=== PATIENT | female | born 1955 | race Caucasian/White ===

== ENCOUNTER 2023-06-16 21:40 | Inpatient (IN) | payer MEDICARE, OTHER ==
[~2023-06-16] VITALS: Ht 162.6 cm; Wt 84.8 kg
[2023-06-16] MEDS ORDERED: ONDANSETRON 4 MG/2 ML VIAL ONE (21:57)
[2023-06-16] MEDS ORDERED: AMLODIPINE 5 MG TABLET ONE (21:57)
[2023-06-16] MEDS ORDERED: MORPHINE SULFATE 4 MG/1 ML DISP.SYRIN ONE (21:58)
[2023-06-16] MEDS: AMLODIPINE 5 MG TABLET PO ONE (22:10)
[2023-06-16] MEDS ORDERED: IOHEXOL 300MG/ML 100 ML INFUS..BTL ONE (22:17)
[2023-06-16] MEDS ORDERED: IV NORMAL SALINE 250 ML IV ONE (22:17)
[2023-06-16] MEDS ORDERED: SWABABLE VALVE TRANSFER SET EA MC ONE (22:17)
[2023-06-16] MEDS: MORPHINE SULFATE 2 MG/1 ML DISP.SYRIN IV ONE (22:20)
[2023-06-16] MEDS: ONDANSETRON 4 MG/2 ML VIAL IV ONE (22:20)
[2023-06-16] MEDS: IV NORMAL SALINE 1000 ML BAG IV ONE (22:24)
[2023-06-16 22:33] LABS: BASOPHILS # (AUTO) 0.1 K/UL (0.0-0.2); BASOPHILS % (AUTO) 2.2 % (0.0-2.0); EOSINOPHILS # (AUTO) 0.1 K/uL (0.0-0.7); EOSINOPHILS % (AUTO) 1.8 % (0.0-7.0); HEMATOCRIT 26.9 % (31.2-41.9); HEMOGLOBIN 9.1 g/dL (10.9-14.3); LYMPHOCYTES # (AUTO) 0.5 K/uL (0.8-4.8); MEAN CORPUSCULAR HEMOGLOBIN 33.1 uug (24.7-32.8); MEAN CORPUSCULAR HGB CONC 34 g/dL (32.3-35.6); MEAN CORPUSCULAR VOLUME 98.4 fL (75.5-95.3); MONOCYTES # (AUTO) 0.2 K/uL (0.1-1.30); MONOCYTES % (AUTO) 4.3 % (0.0-11.0); NEUTROPHILS # (AUTO) 4.1 K/uL (1.8-8.9); NEUTROPHILS % (AUTO) 81.7 % (38.5-71.5); PLATELET COUNT (AUTO) 280 K/uL (179-408); RED BLOOD CELL COUNT(AUTO) 2.73 MIL/uL (3.63-4.92); RED CELL DISTRIBUTION WIDTH 18.4 % (12.3-17.7)
[2023-06-16 22:44] LABS: DIFFERENTIAL COMMENT 1
[2023-06-16 22:48] LABS: CALCIUM 8.3 mg/dL (8.5-10.1); CREATININE 0.7 mg/dL (0.6-1.3); POTASSIUM 3.1 mmol/L (3.5-5.1)
[2023-06-16 22:54] LABS: ALBUMIN 2.5 g/dL (3.4-5.0); BILIRUBIN,DIRECT 0.8 mg/dL (0.0-0.2); BILIRUBIN,TOTAL 1.8 mg/dL (0.2-1.0); TOTAL PROTEIN, SERUM 5.6 g/dL (6.4-8.2)
[2023-06-17] MEDS ORDERED: POTASSIUM CHLORIDE 20 MEQ TAB.PRT.SR ONE (00:56)
[2023-06-17] MEDS ORDERED: METRONIDAZOLE 500 MG/NS 100ML 100 ML IV ONE ×2 (00:56→08:12)
[2023-06-17] MEDS: METRONIDAZOLE 500 MG/NS 100 ML PIGGYBACK IV ONE (01:00)
[2023-06-17 01:09] LABS: *BILIRUBIN,URIN NEGATIVE (NEGATIVE); *BLOOD, URINE NEGATIVE (NEGATIVE); *CLARITY,URINE CLEAR (CLEAR); *COLOR,URINE YELLOW (YELLOW); *KETONES,URINE NEGATIVE (NEGATIVE); *PROTEIN,URINE NEGATIVE (NEGATIVE); *UROBILINOGEN,URINE 0.2 E.U./dl (NORMAL); LEUKOCYTE ESTERASE ,URINE NEGATIVE (NEGATIVE); NITRITE, URINE NEGATIVE (NEGATIVE); UGLUCOSE NEGATIVE (NEGATIVE)
[2023-06-17] MEDS: POTASSIUM CHLORIDE 20 MEQ TAB.PRT.SR PO ONE (01:23)
[2023-06-17] MEDS ORDERED: CIPROFLOXACIN IV 200 ML IV ONE (01:31)
[2023-06-17] MEDS: CIPROFLOXACIN IV 400 MG in PREMIXED 1 EACH IV SCH ×2 (01:45→14:16)
[2023-06-17] MEDS ORDERED: APIX5TAB PO (02:35)
[2023-06-17] MEDS ORDERED: GLIP5TAB13 PO (02:35)
[2023-06-17] MEDS ORDERED: LOPE2CAP40 PO (02:35)
[2023-06-17] MEDS ORDERED: LORA0.5T48 PO (02:35)
[2023-06-17] MEDS ORDERED: METO-358 PO (02:35)
[2023-06-17] MEDS ORDERED: PRED2.5T PO (02:35)
[2023-06-17] MEDS ORDERED: PANT40TA2 PO (02:35)
[2023-06-17] MEDS ORDERED: GABA-532 PO (02:35)
[2023-06-17] MEDS ORDERED: OXYC-133 PO (02:35)
[2023-06-17] MEDS ORDERED: PRED10TA23 PO (02:35)
[2023-06-17] MEDS ORDERED: RAMI10CA32 PO (02:35)
[2023-06-17] MEDS ORDERED: MAGNESIUM HYDROXIDE 30 ML LIQUID UDC PO PRN (02:45)
[2023-06-17] MEDS ORDERED: ACETAMINOPHEN 325 MG TABLET PO PRN (02:45)
[2023-06-17] MEDS ORDERED: REMEDY ESSENTIAL ZINC PASTE 113 GM TP PRN (02:45)
[2023-06-17] MEDS ORDERED: IV NS 1000 ML 1,000 ML IV PRN (02:45)
[2023-06-17] MEDS ORDERED: HYDROMORPHONE 1 MG/1 ML DISP.SYRIN IV PRN (02:45)
[2023-06-17] MEDS ORDERED: PANTOPRAZOLE SODIUM 40 MG TABLET.DR PO ONE (06:19)
[2023-06-17] MEDS: PANTOPRAZOLE SODIUM 40 MG TABLET.DR PO SCH (06:25)
[2023-06-17] MEDS ORDERED: METOPROLOL SUCCINATE XL 50 MG TAB.SR.24H PO ONE (08:58)
[2023-06-17] MEDS ORDERED: predniSONE 10 MG TABLET ONE (08:59)
[2023-06-17] MEDS: METRONIDAZOLE 500 MG/NS 100ML 500 MG in PREMIXED 1 EACH IV SCH (09:10)
[2023-06-17] MEDS: predniSONE 10 MG TABLET PO SCH (09:30)
[2023-06-17] MEDS: METOPROLOL SUCCINATE XL 50 MG TAB.SR.24H PO SCH (09:30)
[2023-06-17] MEDS ORDERED: ONDANSETRON 4 MG/2 ML VIAL ONE (11:35)
[2023-06-17] MEDS: ONDANSETRON 4 MG/2 ML VIAL IV PRN (11:40)
[2023-06-17] MEDS ORDERED: HYDR-3972 PO (12:25)
[2023-06-17] MEDS ORDERED: METR500T PO (12:25)
[2023-06-17] MEDS ORDERED: ONDA4TAB5 PO (12:25)
[2023-06-17] MEDS ORDERED: CIPR500S3 PO (12:25)
[2023-06-17] MEDS ORDERED: APIXABAN 5 MG TABLET PO SCH (17:00)
[2023-06-17 17:34] VITALS: BP 135/65; O2SAT 94
[2023-06-17] MEDS ORDERED: GABAPENTIN 100 MG CAPSULE PO SCH (21:00)
[2023-06-17] MEDS ORDERED: LORAZEPAM 1 MG TABLET PO SCH ×3 (21:00→21:15)
[2023-06-17] MEDS ORDERED: LORAZEPAM 0.5 MG TABLET PO SCH (21:00)
[2023-06-17] MEDS ORDERED: GABAPENTIN 300 MG CAPSULE PO SCH (21:00)
[2023-06-17] MEDS ORDERED: predniSONE 1 MG TABLET PO SCH (21:52)
[2023-06-18] MEDS ORDERED: LOPERAMIDE HCL 2 MG CAPSULE PO SCH (09:00)
[2023-06-18] MEDS ORDERED: METOPROLOL SUCCINATE XL 50 MG TAB.SR.24H PO SCH (09:00)
== END 2023-06-17 13:39 | disposition home or self-care (01) | DRG 445 ==
LOC: ER 21:42 → UNDOADMIN 06-17 07:49 → TRANSITION 06-17 07:49 → ER 06-17 15:30
PROVIDERS: ADMIT Nurse Practitioner Acute Care; ATTEND Nurse Practitioner Acute Care
DX: K80.00 Calculus of gallbladder with acute cholecystitis without obstruction (principal); K50.90 Crohn's disease, unspecified, without complications; K76.9 Liver disease, unspecified; E87.6 Hypokalemia; G89.29 Other chronic pain; M54.9 Dorsalgia, unspecified; E11.65 Type 2 diabetes mellitus with hyperglycemia; D64.9 Anemia, unspecified; I10 Essential (primary) hypertension; Z86.718 Personal history of other venous thrombosis and embolism; Z79.52 Long term (current) use of systemic steroids; Z88.0 Allergy status to penicillin; Z79.01 Long term (current) use of anticoagulants; Z88.1 Allergy status to other antibiotic agents; Z90.49 Acquired absence of other specified parts of digestive tract; Z79.84 Long term (current) use of oral hypoglycemic drugs; Z79.899 Other long term (current) drug therapy
CPT/HCPCS: 36415; 83690; 85025; 87040; A4606; A4663; G0378; J0744; J2270; J2405; J3490; J7040; J7512; Q9967